=== PATIENT | female | born 1945 | race Caucasian/White ===

== ENCOUNTER 2016-11-27 06:39 | Inpatient (IN) | payer MEDICARE, BC ==
[~2016-11-27] VITALS: Ht 162.6 cm; Wt 55.8 kg
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
[2016-11-27] MEDS ORDERED: ESOM40CA PO (07:53)
[2016-11-27] MEDS ORDERED: GABA-532 PO (07:53)
[2016-11-27] MEDS ORDERED: ALPR0.25 PO (07:53)
[2016-11-27] MEDS ORDERED: LEVO75TA7 PO (07:53)
[2016-11-27] MEDS ORDERED: ESCI10TA PO (07:53)
[2016-11-27] MEDS ORDERED: AMYL1CAP56 PO (07:53)
[2016-11-27 08:00] VITALS: BP 151/69
[2016-11-27 16:00] VITALS: BP 138/66
[2016-11-27 18:14] LABS: CHOLESTEROL 185 mg/dL (<200); HDL CHOLESTEROL 58 mg/dL (40-60); LDL 114 mg/dL (0-99); TRIGLYCERIDES 72 mg/dL (30-150)
[2016-11-27 20:12] VITALS: BP 128/68
[2016-11-28 07:50] VITALS: BP 148/74
[2016-11-28 09:26] LABS: BASOPHILS % (AUTO) 0.4 % (0.0-2.0); EOSINOPHILS # (AUTO) 0.2 /CMM (0.0-0.7); EOSINOPHILS % (AUTO) 2.9 % (0.0-6.0); HEMATOCRIT 45 % (33-45); HEMOGLOBIN 14.7 g/dL (11.5-14.8); LYMPHOCYTES # (AUTO) 1.9 /CMM (0.8-4.8); LYMPHOCYTES % (AUTO) 25.8 % (20.0-44.0); MEAN CORPUSCULAR HEMOGLOBIN 30 PG (26.0-33.0); MEAN CORPUSCULAR HGB CONC 33 g/dl (31.0-36.0); MEAN CORPUSCULAR VOLUME 91 fL (82-100); MONOCYTES # (AUTO) 0.6 /CMM (0.1-1.30); MONOCYTES % (AUTO) 8.3 % (2.0-12.0); NEUTROPHILS # (AUTO) 4.6 /CMM (1.8-8.9); NEUTROPHILS % (AUTO) 62.6 % (43.0-81.0); PLATELET COUNT (AUTO) 284 /CMM (150-450); RDW COEFFICIENT OF VARIATION 14.2 (11.5-15.0); WHITE BLOOD COUNT (AUTO) 7.4 K/uL (4.3-11.0)
[2016-11-28 09:56] LABS: ALANINE AMINOTRANSFERASE 26 U/L (12-78); ALBUMIN 3.9 g/dL (3.4-5.0); ALKALINE PHOSPHATASE 44 U/L (46-116); ASPARTATE AMINOTRANSFERASE 19 U/L (15-37); BILIRUBIN,TOTAL 0.5 mg/dL (0.2-1.0); CALCIUM, SERUM 9.2 mg/dL (8.5-10.1); CARBON DIOXIDE 30 mmol/L (21-32); CHLORIDE 107 mmol/L (98-107); CREATININE 0.7 mg/dL (0.6-1.3); GLUCOSE 103 mg/dL (74-106); POTASSIUM 4.2 mmol/L (3.5-5.1); SODIUM SERUM 145 mmol/L (136-145); TOTAL PROTEIN, SERUM 7.7 g/dL (6.4-8.2); UREA NITROGEN, BLOOD 11 mg/dL (7-18)
[2016-11-28 15:43] VITALS: BP 113/67
--- NOTE | 2016-11-28 16:00 | NUR ---
workers compensation coordinator spoke to patient's friend Belkis Caraballo ([phone]) who confirmed that she could pick-up the patient tomorrow at 11:00am. SW asked Belkis if she could confirm that patient's firearms were removed from the home by the [employer] [employer]. Per Belkis, the weapons were removed from the [employer] [employer], however Belkis stated that she found a jim gun in the patient's home. Per Belkis she removed the jim gun and placed it in her trunk. SW advised Belkis to drop off the jim gun to the [employer] [employer] to be safe. Belkis agreed and stated that she would drop of the jim gun to the [employer] [employer].
--- NOTE | 2016-11-28 16:06 | NUR ---
SW contact the [employer] [employer] to confirm that patient's firearms had been removed from the home. high worker spoke to Police Bus Attendant Graciela who was able to confirm that patient's firearms had been removed by the [place] [employer] and were being held in the property office. Service Electrical Tester Battery Graciela provided SW with the report number associated with the removal of the weapons. ([id number]). SW also, mentioned to Service rating officer Graciela that patient's friend had found a jim gun in patient's home, and SW had advised her to drop it off to the [place] [employer]. Bus Attendant Graciela stated that she could drop it off at the property office and it could be held along with patient's other firearms.
--- NOTE | 2016-11-28 16:48 | NUR ---
Initial Discharge Plan: Patient lives at home alone [address] [facility] [place] [address]. ([phone]). Patient wants to return home upon discharge. SW spoke to patient's friend Belkis Caraballo ([phone]) who confirmed that patient lives home alone, Belkis confirmed that she could seed cone picker the patient when patient is ready for discharge. SW will help form a safe and proper discharge.
[2016-11-28 19:35] VITALS: BP 159/81
[2016-11-29 08:00] VITALS: BP 136/75
--- NOTE | 2016-11-29 11:00 | NUR ---
[id number]: PT IS 71 YEARS OLD FEMALE DISCHARGE TO HOME AT [address] [place]. [address] ([phone]) IN STABLE CONDITION. COMPLAINT WITH MEDICATIONS, COOPERATE WITH TREATMENT PLANS. PT DENIES SI/HI AND INSTRUCTED TO GO TO THE CLOSEST ER IF DEVELOPING SI/HI. BEHAVIOR IMPROVED, PSYCHIATRIC TX PLANS MET, MEDICAL TX PLANS DEFERRED FOR CONTINUAL MONITORING. EDUCATED PT ABOUT AFTER CARE PLAN AND COPY PROVIDED. RETURNED PERSONAL BELONGINGS TO PT. MEDICATIONS RECONCILED WITH DR. HEREDIA AND DR. ALBARRAN. PT SIGNED DISCHARGE PAPERWORK. SKIN IS INTACT. PT LEFT THE UNIT ACCOMPANIED BY STAFF AND FRIEND NAMED YAMILE HOSKINS. FAXED MEDICATION LIST TO [facility] AT [facility] [address] [place]. [address],
--- NOTE | 2016-11-29 13:45 | NUR ---
Discharge Note: Patient was discharged home to [address] [place] [id number]. ([phone]). Patient's friend Belkis Caraballo ([phone]) was informed and picked patient up via private vehicle. Patient was agreeable with the discharge plan. Patient's mood and affect were appropriate upon discharge. Patient denied suicidal and homicidal ideations. Patient agreed to follow-up with a psychiatrist within 30 days and was referred to [facility] ([phone]) [address] [place] [address]. Patient was also referred to [facility] for substance use follow-up. Patient has an intake appointment scheduled tomorrow 11/30/16 at 9:00am [address] [place] [address]. ([phone]). Facilitated info to IDT team who are in agreement with discharge arrangement. The multidisciplinary exitcare form was done, printed, signed, and given to the patient.
== END 2016-11-29 11:00 | disposition home or self-care (01) | DRG 885 ==
LOC: GPS 06:39
PROVIDERS: ADMIT Psychiatry & Neurology Psychiatry; ATTEND Internal Medicine
DX: F33.2 Major depressive disorder, recurrent severe without psychotic features (principal); F23 Brief psychotic disorder; E03.9 Hypothyroidism, unspecified; K21.9 Gastro-esophageal reflux disease without esophagitis; F41.9 Anxiety disorder, unspecified; Z79.899 Other long term (current) drug therapy; Z73.6 Limitation of activities due to disability
CPT/HCPCS: 36415; 80053-TC; 80061-TC; 85025-TC